=== PATIENT | male | born 1990 | race Caucasian/White ===

== ENCOUNTER 2019-07-15 08:26 | Outpatient (CLI) | payer BC, SELFPAY ==
--- NOTE | 2019-07-28 02:45 | SLEEP_ITS ---
Home Sleep Test DATE OF STUDY: 07/15/2019 REASON FOR THIS STUDY: Excessive hypersomnolence, poor quality sleep. HISTORY: This patient is a 29-year-old male, 5 feet 11 inches tall, weighing 170 pounds with a body mass index of 23.7. He has anxiety, depression, and a long history of excessive daytime sleepiness. His sleep quality is poor and his sleep consistency is irregular. He wakes up feeling exhausted every day. He finds it difficult to maintain a consistent sleep schedule, often sleeping in the day and staying awake at night. He has tried sleep hygiene recommendations medications to help correct his missed aligned sleep cycle, and although he does not snore or at least loudly enough that others complain about it. He does awaken during the night. He never awakens during the night short of breath, but he occasionally awakens at night with heartburn or belching. He frequently has trouble sleeping with a cold. He rarely sweats excessively at night. He does not notices heart pounding irregularly at night. He frequently falls asleep during the day, never involuntarily, or while driving. He does not have loss of muscle tone due to extreme emotion. He frequently has difficulty at school or work due to excessive sleepiness. He does not feel paralyzed on waking or falling asleep. He does not have vivid dreamlike scenes upon awakening or falling asleep. He occasionally is afraid to go to sleep. He rarely has nightmares, rarely remembers his dreams and rarely has racing thoughts. He occasionally feels sad, depressed, or anxious. He does not have muscular tension. He occasionally notices parts of his body jerking and he occasionally kicks at night. He does not have crawly achy feelings in his legs. He does not have leg pain at night or jaw pain. He frequently grinds his teeth at night. He is rarely bothered by pain during the day or at night. He frequently wakes up feeling stiff in the morning with sore achy muscles. He rarely wakes up with pain in the neck and spine. He has fatigue, concentration difficulties, and takes antacids regularly. Normal bedtime is 8 p.m., during the week and 12 p.m. on the weekends. He takes 1-2 hours to fall asleep, waking once at night maybe for minutes or maybe longer. During that time, he will go to the bathroom, read or attempt to go back to sleep. He wakes in the morning at 7 a.m. On the weekends, he will go to bed at 12 midnight and wake also at 7 a.m. He goes to sleep later on Sundays. He does not take naps. A short nap is not refreshing. He is drowsy in the morning for 2 hours or longer. He feels better in the morning than at other times a day. MEDICAL COMORBIDITIES: Anxiety, depression, seasonal allergies. MEDICATIONS: Paroxetine 10 mg daily, bupropion 300 mg daily, montelukast 10 mg daily. HABITS: Never smoked tobacco. Caffeine, 2 Red Bulls daily. Alcohol is not use. No recreational drugs. DESCRIPTION OF THE STUDY: On the [place] Sleepiness Scale, it is 5. This was conducted as an unattended home sleep test using 4 channel monitoring including respiratory effort channel, snoring channel, oxygen saturation channel, and heart rate channel. This study was scored using [facility] guidelines. Duration of the study was 10 hours 46 minutes. This is longer than the patient normally sleeps at home. The apnea-hypopnea index was 6. The oxygen desaturation index was 3. The lowest desaturation was 91%. The baseline saturation was 96%. He had 47 apneas. The majority of these apneas 60% were central apneas, 28 were recorded. 34% of the apneas were scored as obstructive, and this was 16 apneas. He had 6% mixed apneas for a total of 3. He had 16 hypopneas. He had 358 snoring events. He had 32 desaturations, but did not spend any time belo
== END 2019-07-15 08:27 | disposition home or self-care (01) ==
LOC: ANHCSM 08:28
PROVIDERS: PCP Family Medicine; Visit Provider Internal Medicine Critical Care Medicine
DX: G47.10 Hypersomnia, unspecified (principal); Z72.821 Inadequate sleep hygiene; F33.1 Major depressive disorder, recurrent, moderate; J30.2 Other seasonal allergic rhinitis
CPT/HCPCS: 95806

== ENCOUNTER 2020-01-26 02:05 | Outpatient (CLI) | payer BC, SELFPAY ==
[2020-01-26 17:02] LABS: SARS-CoV-2 RNA PCR Negative
== END 2020-01-26 02:06 | disposition home or self-care (01) ==
LOC: ANHCOVIDDT 02:05
PROVIDERS: PCP Family Medicine; Visit Provider Internal Medicine Critical Care Medicine
DX: Z20.828 Contact with and (suspected) exposure to other viral communicable diseases (principal)
CPT/HCPCS: 87635; C9803; U0003

== ENCOUNTER 2020-01-28 08:37 | Outpatient (CLI) | payer BC, SELFPAY ==
--- NOTE | 2020-02-19 12:38 | WPDSLEEPSTUD ---
Sleep Study Date of Study: 01/28/20 Ordering Provider: Kristofer Manzano NP Interpreting Physician: Zenia Su MD Sleep Study Type: CPAP Titration Height: 1.8 m Weight: 77.564 kg Body Mass Index: 23.8 Neck Circumference (inches): 16.5 Gregory: 12 Reason for Sleep Study Prior home sleep test on July 15, 2019 showing mild central sleep apnea syndrome with an AHI of 6 with co-morbidities of anxiety and depression. Sleep History This 29 year old man has anxiety, depression, and a long history of excessive daytime sleepiness. His sleep quality is poor and his sleep consistency is irregular. He wakes up feeling exhausted every day. He finds it difficult to maintain a consistent sleep schedule, often sleeping in the day and staying awake at night. He has tried sleep hygiene recommendations and medications to help correct his misaligned sleep cycle. He does not snore or at least loudly enough that others complain about it. He does awaken during the night. He never awakens during the night short of breath, but he occasionally awakens at night with heartburn or belching. He frequently has trouble sleeping with a cold. He rarely sweats excessively at night. He does not notice his heart pounding irregularly at night. He frequently falls asleep during the day, never involuntarily, or while driving. He does not have loss of muscle tone due to extreme emotion. He frequently has difficulty at school or work due to excessive sleepiness. He does not feel paralyzed on waking or falling asleep. He does not have vivid dreamlike scenes upon awakening or falling asleep. He occasionally is afraid to go to sleep. He rarely has nightmares, rarely remembers his dreams and rarely has racing thoughts. He occasionally feels sad, depressed, or anxious. He does not have muscular tension. He occasionally notices parts of his body jerking and he occasionally kicks at night. He does not have crawly achy feelings in his legs. He does not have leg pain at night or jaw pain. He frequently grinds his teeth at night. He is rarely bothered by pain during the day or at night. He frequently wakes up feeling stiff in the morning with sore achy muscles. He rarely wakes up with pain in the neck and spine. He has fatigue, concentration difficulties, and takes antacids regularly. Normal bedtime is 8 p.m., during the week and 12 p.m. on the weekends. He takes 1-2 hours to fall asleep, waking once at night maybe for minutes or maybe longer. During that time, he will go to the bathroom, read or attempt to go back to sleep. He wakes in the morning at 7 a.m. On the weekends, he will go to bed at 12 midnight and wake also at 7 a.m. He goes to sleep later on Sundays. He does not take naps. A short nap is not refreshing. He is drowsy in the morning for 2 hours or longer. He feels better in the morning than at other times a day. [facility] Past Medical History Medical History (Updated 02/19/20 @ 12:54 by Zenia Su MD) Allergic rhinitis Anxiety Central sleep apnea Cubital tunnel syndrome, bilateral Depression Dysthymic disorder Family History Family History (Updated 01/09/19 @ 10:04 by DOCTOR UNKNOWN) Mother Depression Social History Social History (Updated 02/19/20 @ 12:47 by Zenia Su MD) Social History: Caffeine- 2 Red Bull caffeinated drinks per day. Smoking status: Never smoker Alcohol intake: never Medications paroxetine 10 mg a day Zyrtec 10 mg a day amphetamine salts 5 mg a day Sleep Procedure This attended study was performed using the Intrakr multiple channel system including EOG, EEG, submental EMG, snore channel monitoring, nasal and oral airflow using thermistors and nasal pressure sensors, EKG, chest and abdominal belts for body position data, limb leads, pulse oximetry and video monitoring. The study was read using [facility] guidelines. He was titrated using initially medium Navarro nasal pillows, then small Navarro nasal pillows, f
[2020-02-19 13:30] VITALS: BMI 23.8
== END 2020-01-28 08:38 | disposition home or self-care (01) ==
LOC: ANHCSM 08:38
PROVIDERS: PCP Family Medicine; Visit Provider Nurse Practitioner Family
DX: G47.31 Primary central sleep apnea (principal)
CPT/HCPCS: 95811

== ENCOUNTER → 2021-04-07 11:23 | Outpatient (CLI) | payer BC, SELFPAY ==
--- NOTE | ~2021-04-07 | XR_ITS ---
XR knee RT 3V DATE: 04/07/2021 12:27 INDICATION: Right knee pain TECHNIQUE: AP, lateral, sunrise views COMPARISON: None FINDINGS: There are two ossicles at the inferior aspect of the patella, likely accessory ossicles in the absence of any given history of recent trauma. No fracture or dislocation of joint effusion. Joint spaces are well preserved. No radiopaque intra- articular loose body or chondrocalcinosis. IMPRESSION: Probable accessory ossification centers at inferior pole of patella Reviewed, dictated and finalized at location A. 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
== END ==
PROVIDERS: PCP Family Medicine; Visit Provider Physician Assistant
DX: M25.569 Pain in unspecified knee (principal); R93.7 Abnormal findings on diagnostic imaging of other parts of musculoskeletal system
CPT/HCPCS: 73562

== ENCOUNTER 2022-04-19 14:19 | Outpatient (CLI) | payer BC, SELFPAY ==
[2022-04-19 18:54] LABS: Basophils Absolute Auto 0.1 K/mm3 (0.0-0.1); Basophils Percent Auto 1.2 % (0.2-1.2); Eosinophils Absolute Auto 0.2 K/mm3 (0-0.3); Eosinophils Percent Auto 3.6 % (0-4.4); Hematocrit 46.1 % (42.0-52.0); Hemoglobin 15.8 g/dL (14.0-18.0); Immature Granulocyte Absolute 0.01 K/mm3 (0.00-0.031); Immature Granulocyte Percent A 0.2 % (0-0.5); Lymphocytes Absolute Auto 1.78 K/mm3 (0.9-3.2); Lymphocytes Percent Auto 30.4 % (18.3-44.2); Mean Corpuscular HGB Conc 34.3 g/dl (32-36); Mean Corpuscular Hemoglobin 29.4 pg (26-34); Mean Corpuscular Volume 85.8 fl (80-100); Mean Platelet Volume 11.2 fl (7.4-10.4); Monocytes Absolute Auto 0.4 K/mm3 (0.1-0.6); Monocytes Percent Auto 7.2 % (2.6-8.5); Neutrophils Absolute Auto 3.4 K/mm3 (1.3-6.7); Neutrophils Percent Auto 57.4 % (45.5-73.1); Platelet Count Result 247 k/mm3 (150-375); Red Blood Count 5.37 M/mm3 (4.6-6.20); Red Cell Distribution Width 12.4 % (11.5-14.5); White Blood Count 5.9 K/mm3 (4.5-10.0)
[2022-04-19 19:03] LABS: Alanine Aminotransferase 34 U/L (6-50); Albumin Level 4.8 g/dL (3.5-5.1); Alkaline Phosphatase 118 U/L (38-126); Anion Gap 11 mmol/L (8-16); Aspartate Amino Transferase 51 U/L (17-59); Bilirubin,Total 0.5 mg/dL (0.2-1.3); Blood Urea Nitrogen 8 mg/dL (9-20); Calcium 9.6 mg/dL (8.4-10.2); Carbon Dioxide 30 mmol/L (22-30); Chloride 104 mmol/L (98-107); Cholesterol 157 mg/dL (0-200); Estimated Glomerular Filt Rate > 60; Glucose 103 mg/dL (65-110); HDL Direct 29 mg/dL; Potassium 4.9 mmol/L (3.4-5.0); Sodium 145 mmol/L (137-145); Triglycerides 169 mg/dL (<150)
[2022-04-19 19:29] LABS: LDL Cholesterol Direct 84 mg/dL
[2022-04-19 19:30] LABS: Vitamin D 25 Hydroxy 33.6 ng/mL
[2022-04-19 19:33] LABS: Thyroid Stimulating Hormone 0.499 uIU/mL (0.465-4.680)
[2022-04-23 04:05] LABS: Thyroglobulin 11.8 ng/mL (2.8-40.9); Thyroglobulin Antibodies <1 IU/mL (<=1); Thyroid Peroxidase Antibodies <1 IU/mL (<9)
== END 2022-04-19 14:20 | disposition home or self-care (01) ==
LOC: ANHGOSHLAB 14:21
PROVIDERS: PCP Family Medicine; Visit Provider Family Medicine
DX: Z00.00 Encounter for general adult medical examination without abnormal findings (principal); R53.83 Other fatigue; M79.10 Myalgia, unspecified site; E04.9 Nontoxic goiter, unspecified
CPT/HCPCS: 36415; 80053; 80061; 82306; 82607; 84432; 84443; 85025; 86376; 86800

== ENCOUNTER → 2022-04-25 12:58 | Outpatient (CLI) | payer BC, SELFPAY ==
--- NOTE | ~2022-04-25 | US_ITS ---
US thyroid INDICATION: Nontoxic thyroid goiter TECHNIQUE: Real-time sonographic images of the thyroid gland were obtained. COMPARISON: No prior studies for comparison. FINDINGS: The right thyroid lobe measures 4.8 x 1.5 x 1.4 cm. The left thyroid lobe measures 4.4 x 1 .7 x 1.5 cm. There is normal echotexture and echogenicity throughout the thyroid gland. No discrete n odules identified. Normal vascular flow is present. IMPRESSION: 1. Normal thyroid without discrete nodule or abnormal vascularity. Reviewed, dictated and finalized at location A. 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
== END ==
PROVIDERS: PCP Family Medicine; Visit Provider Family Medicine
DX: E04.9 Nontoxic goiter, unspecified (principal)
CPT/HCPCS: 76536

== ENCOUNTER 2022-07-30 00:10 | Day surgery (SDC) | payer BC, SELFPAY ==
[2022-07-18 14:01] VITALS: BMI 27.1
[2022-07-30 12:16] VITALS: BP 108/59; PULSE 92; RESP 18; TEMP 36.7; O2SAT 99; BMI 26.4
[2022-07-30] MEDS: LACTATED RINGERS 1,000 ML 150 ML IV CONT (12:30)
--- NOTE | 2022-07-30 12:32 | WPDANESEPPF ---
Anes - Initial Pre Proc Eval Procedure: Operation Date: 07/30/22 13:30 Proposed Procedures p Esophagogastroduodenoscopy - Francisco Soto MD Date/Time: 07/30/22 12:32 Surgeon: Francisco Soto MD Pre Op Diagnosis: pharyngoesophageal phase, dysphagia Patient Data Age: 32 Gender: M Height: 1.83 m Weight: 88.5 kg Last Vital Signs Temp 36.7 C 07/30/22 12:16 Pulse 92 07/30/22 12:16 Resp 18 07/30/22 12:16 BP 108/59 L 07/30/22 12:16 Pulse Ox 99 07/30/22 12:16 O2 Del Method Room Air 07/30/22 12:16 Allergies Allergy/AdvReac Type Severity Reaction Status Date / Time grass pollen Allergy Unknown unknown Verified 07/30/22 12:15 milk Allergy Unknown unknown Verified 07/30/22 12:15 NKDA Allergy Mild NONE Uncoded 07/11/22 15:43 Home Medications Medication Instructions Recorded Confirmed Type cetirizine 10 mg capsule (Zyrtec) 10 mg PO DAILY PRN Allergic 09/12/20 07/30/22 History Symptoms paroxetine HCl 20 mg tablet 30 mg PO DAILY 03/13/22 07/30/22 History modafinil 200 mg tablet 200 mg PO QAM 30 days #30 tabs 06/25/22 07/30/22 Rx Patient hx anesthesia problems: none Family hx anesthesia problems: none Results Review: All pre-operative results and documents have been reviewed as part of the pre-operative evaluation. [facility] Past Medical History Medical History Allergic rhinitis Anxiety Central sleep apnea Cubital tunnel syndrome, bilateral Depression Dysthymic disorder Right patella fracture Distal pole non-displaced. Surgical History Surgical History No history of previous surgery Family History Family History Mother Depression Social History Social History Social History: Caffeine- 1Red Bull caffeinated drinks per day. Smoking status: Never smoker Second hand tobacco smoke exposure: Yes Alcohol intake: never Substance use: never Substance use type: does not use Lack of Transportation: No Lack of Food: Never True Current Housing: I Have Housing Concerned About Future Housing: No Difficulty Paying Gas/Electric Bills: No Difficulty Paying for Meds: No Currently Unemployed: Decline to Answer Education: Decline to Answer Difficulty w/ Childcare or Family Care: No Living arrangements: alone Spiritual care concerns: No Anes - Eval Final PreProcedure Day of Procedure 07/30/22 12:32 Patient weight: normal Heart: regular rate and rhythm Lungs: clear to auscultation Airway: Mallampati scale class II Neurological: alert and oriented Last oral intake: >/= 8 hours ASA classification: II Emergent: no Anesthetic plan: proceed Anesthesia type and monitoring: general GIVS and standard monitoring Results Review: All pre-operative results and documents have been reviewed as part of the pre-operative evaluation. Informed Consent: The patient's anesthetic plan and its attendant risks and benefits were discussed with the patient/family/POA. Questions were solicited and answers provided to the satisfaction of the patient/family/POA.
--- NOTE | 2022-07-30 12:58 | PM.HPGS ---
History of Present Illness History of Present Illness Consent: Risks, benefits, and alternatives have been discussed and questions answered. Patient agrees to proceed with procedure. Chief complaint: pharyngoesophageal phase, dysphagia Narrative: Danial Hernandez is a 32 year old male with intermittent sensation of food getting stuck in throat, never had egd Review of Systems Constitutional: Constitutional: Denies headache(s) and Denies weakness Eyes: Eyes: Denies blurry vision ENT: Reports Normal hearing present, Denies headache(s) and Denies neck pain Cardiovascular: Cardiovascular: Denies chest pain and Denies dyspnea Respiratory: Respiratory: Denies dyspnea Gastrointestinal: Gastrointestinal: Reports no additional gastrointestinal complaints Genitourinary: Genitourinary: Denies dysuria Musculoskeletal: Musculoskeletal: Denies neck pain Integumentary/Breasts: Skin/Breast: Denies dry skin Neurologic: Reports Normal hearing present, Denies headache(s) and Denies weakness Psychiatric: Psychiatric: Denies anxiety Endocrine: Endocrine: Denies change in body appearance Hematologic/Lymphatic: Hematologic/Lymphatic: Denies easy bleeding Allergic/Immunologic: Allergic/Immunologic: Denies urticaria PMFSH Past Medical History Medical History Allergic rhinitis Anxiety Central sleep apnea Cubital tunnel syndrome, bilateral Depression Dysthymic disorder Right patella fracture Distal pole non-displaced. Surgical History Surgical History No history of previous surgery Family History Family History Mother Depression Social History Social History Social History: Caffeine- 1Red Bull caffeinated drinks per day. Smoking status: Never smoker Second hand tobacco smoke exposure: Yes Alcohol intake: never Substance use: never Substance use type: does not use Lack of Transportation: No Lack of Food: Never True Current Housing: I Have Housing Concerned About Future Housing: No Difficulty Paying Gas/Electric Bills: No Difficulty Paying for Meds: No Currently Unemployed: Decline to Answer Education: Decline to Answer Difficulty w/ Childcare or Family Care: No Living arrangements: alone Spiritual care concerns: No Meds Home Medications and Allergies Home Medications Medication Instructions Recorded Confirmed Type cetirizine 10 mg capsule (Zyrtec) 10 mg PO DAILY PRN Allergic 09/12/20 07/30/22 History Symptoms paroxetine HCl 20 mg tablet 30 mg PO DAILY 03/13/22 07/30/22 History modafinil 200 mg tablet 200 mg PO QAM 30 days #30 tabs 06/25/22 07/30/22 Rx Allergies Allergy/AdvReac Type Severity Reaction Status Date / Time grass pollen Allergy Unknown unknown Verified 07/30/22 12:15 milk Allergy Unknown unknown Verified 07/30/22 12:15 NKDA Allergy Mild NONE Uncoded 07/11/22 15:43 Vital Signs Vital Signs - 24 hr 07/30/22 12:16 Temperature 98.0 F Pulse Rate 92 Respiratory Rate 18 Blood Pressure 108/59 L Pulse Oximetry 99 Oxygen Delivery Room Air Exam Const: General: comfortable and no acute distress HENMT: Face/Nose/Sinus: Normal nares present Eyes: General: appearance normal, both eyes and all related structures Neck: Neck: no JVD Resp: Auscultation: clear to auscultation bilaterally Cardio: Rate: regular rate Rhythm: regular rhythm GI: Inspection: non-distended GI Palp: Yes Soft to palpation Skin: General skin exam: normal color Neuro: General: gait normal Speech: normal speech Extrem: General: normal to inspection Psych: Mental Status: mental status grossly normal Assessment and Plan Assessment and plan (1) Dysphagia: Qualifiers: Dysphagia type: pharyngoesophageal phase Qualified Code(s): R13.14
[2022-07-30 13:12] VITALS: BP 91/49; PULSE 77; RESP 22; O2SAT 99
[2022-07-30 13:22] VITALS: BP 89/50; PULSE 83; RESP 18; O2SAT 98
[2022-07-30 13:32] VITALS: BP 90/58; PULSE 82; RESP 16; O2SAT 99
== END 2022-07-30 13:40 | disposition home or self-care (01) ==
PROVIDERS: PCP Family Medicine; Visit Provider Internal Medicine Gastroenterology
PROC: 0DJ08ZZ Inspection of Upper Intestinal Tract, Via Natural or Artificial Opening Endoscopic (ICD-10-PCS; CPT 43235; principal; 2022-07-30 13:30)
DX: R13.14 Dysphagia, pharyngoesophageal phase (principal); K21.00 Gastro-esophageal reflux disease with esophagitis, without bleeding; G56.20 Lesion of ulnar nerve, unspecified upper limb; G47.31 Primary central sleep apnea; F32.A Depression, unspecified; F41.9 Anxiety disorder, unspecified; F34.1 Dysthymic disorder
CPT/HCPCS: 43239; 88305; J2704; J7120

== ENCOUNTER 2022-10-24 00:13 | Day surgery (SDC) | payer BC, SELFPAY ==
[2022-10-17 14:15] VITALS: BMI 25.7
[2022-10-24 08:14] VITALS: BP 102/66; PULSE 97; RESP 17; TEMP 36.6; O2SAT 98
--- NOTE | 2022-10-24 08:29 | WPDANESEPPF ---
Anes - Initial Pre Proc Eval Procedure: Operation Date: 10/24/22 09:45 Proposed Procedures p Colonoscopy - Francisco Soto MD Date/Time: 10/24/22 08:29 Surgeon: Francisco Soto MD Pre Op Diagnosis: melena Patient Data Age: 32 Gender: M Height: 1.83 m Weight: 87.3 kg Last Vital Signs Temp 36.6 C 10/24/22 08:14 Pulse 97 10/24/22 08:14 Resp 17 10/24/22 08:14 BP 102/66 10/24/22 08:14 Pulse Ox 98 10/24/22 08:14 O2 Del Method Room Air 10/24/22 08:14 Allergies Allergy/AdvReac Type Severity Reaction Status Date / Time grass pollen Allergy Unknown unknown Verified 10/24/22 08:13 milk Allergy Unknown unknown Verified 10/24/22 08:13 gluten Allergy Other Verified 10/24/22 08:13 Home Medications Medication Instructions Recorded Confirmed Type cetirizine 10 mg capsule (Zyrtec) 10 mg PO DAILY Allergic Symptoms 09/12/20 10/17/22 History paroxetine HCl 20 mg tablet 40 mg PO DAILY 03/13/22 10/17/22 History aripiprazole 5 mg tablet (Abilify) 0.5 mg PO DAILY 09/07/22 10/17/22 History modafinil 200 mg tablet 200 mg PO QAM 30 days #30 tabs 10/02/22 10/17/22 Rx omeprazole 40 mg capsule,delayed 40 mg PO DAILY 10/17/22 10/17/22 History release Patient hx anesthesia problems: none Family hx anesthesia problems: none Results Review: All pre-operative results and documents have been reviewed as part of the pre-operative evaluation. [facility] Past Medical History Medical History Allergic rhinitis Anxiety Central sleep apnea Cubital tunnel syndrome, bilateral Depression Dysthymic disorder Right patella fracture Distal pole non-displaced. Surgical History Surgical History No history of previous surgery Family History Family History Mother Depression Social History Social History (Updated 09/07/22 @ 10:35 by Yessenia Ardon MA) Social History: Caffeine- 1Red Bull caffeinated drinks per day. Smoking status: Never smoker Second hand tobacco smoke exposure: Yes Alcohol intake: never Substance use: never Substance use type: does not use Lack of Transportation: No Lack of Food: Never True Current Housing: I Have Housing Concerned About Future Housing: No Difficulty Paying Gas/Electric Bills: No Difficulty Paying for Meds: No Currently Unemployed: Decline to Answer Education: Bachelor's Degree Difficulty w/ Childcare or Family Care: No Living arrangements: with family Spiritual care concerns: No Anes - Eval Final PreProcedure Day of Procedure 10/24/22 08:29 Patient weight: normal Heart: regular rate and rhythm Lungs: clear to auscultation Airway: Mallampati scale class II Neurological: alert and oriented Last oral intake: >/= 8 hours ASA classification: II Emergent: no Anesthetic plan: proceed Anesthesia type and monitoring: general GIVS and standard monitoring Results Review: All pre-operative results and documents have been reviewed as part of the pre-operative evaluation. Informed Consent: The patient's anesthetic plan and its attendant risks and benefits were discussed with the patient/family/POA. Questions were solicited and answers provided to the satisfaction of the patient/family/POA.
[2022-10-24] MEDS: LACTATED RINGERS 1,000 ML 150 ML IV CONT (08:30)
--- NOTE | 2022-10-24 09:18 | PM.HPGS ---
History of Present Illness History of Present Illness Consent: Risks, benefits, and alternatives have been discussed and questions answered. Patient agrees to proceed with procedure. Chief complaint: melena Narrative: Danial Hernandez is a 32 year old male here with intermittent rectal bleeding, never had colonoscopy Review of Systems Constitutional: Constitutional: Denies headache(s) and Denies weakness Eyes: Eyes: Denies blurry vision ENT: Reports Normal hearing present, Denies headache(s) and Denies neck pain Cardiovascular: Cardiovascular: Denies chest pain and Denies dyspnea Respiratory: Respiratory: Denies dyspnea Gastrointestinal: Gastrointestinal: Reports no additional gastrointestinal complaints Genitourinary: Genitourinary: Denies dysuria Musculoskeletal: Musculoskeletal: Denies neck pain Integumentary/Breasts: Skin/Breast: Denies dry skin Neurologic: Reports Normal hearing present, Denies headache(s) and Denies weakness Psychiatric: Psychiatric: Denies anxiety Endocrine: Endocrine: Denies change in body appearance Hematologic/Lymphatic: Hematologic/Lymphatic: Denies easy bleeding Allergic/Immunologic: Allergic/Immunologic: Denies urticaria PMFSH Past Medical History Medical History Allergic rhinitis Anxiety Central sleep apnea Cubital tunnel syndrome, bilateral Depression Dysthymic disorder Right patella fracture Distal pole non-displaced. Surgical History Surgical History No history of previous surgery Family History Family History Mother Depression Social History Social History (Updated 09/07/22 @ 10:35 by Yessenia Ardon MA) Social History: Caffeine- 1Red Bull caffeinated drinks per day. Smoking status: Never smoker Second hand tobacco smoke exposure: Yes Alcohol intake: never Substance use: never Substance use type: does not use Lack of Transportation: No Lack of Food: Never True Current Housing: I Have Housing Concerned About Future Housing: No Difficulty Paying Gas/Electric Bills: No Difficulty Paying for Meds: No Currently Unemployed: Decline to Answer Education: Bachelor's Degree Difficulty w/ Childcare or Family Care: No Living arrangements: with family Spiritual care concerns: No Meds Home Medications and Allergies Home Medications Medication Instructions Recorded Confirmed Type cetirizine 10 mg capsule (Zyrtec) 10 mg PO DAILY Allergic Symptoms 04/26/21 05/31/23 History paroxetine HCl 20 mg tablet 40 mg PO DAILY 03/13/22 10/17/22 History aripiprazole 5 mg tablet (Abilify) 0.5 mg PO DAILY 09/07/22 10/17/22 History modafinil 200 mg tablet 200 mg PO QAM 30 days #30 tabs 10/02/22 10/17/22 Rx omeprazole 40 mg capsule,delayed 40 mg PO DAILY 10/17/22 10/17/22 History release Allergies Allergy/AdvReac Type Severity Reaction Status Date / Time grass pollen Allergy Unknown unknown Verified 10/24/22 08:13 milk Allergy Unknown unknown Verified 10/24/22 08:13 gluten Allergy Other Verified 10/24/22 08:13 Vital Signs Vital Signs - 24 hr 10/24/22 08:14 Temperature 97.9 F Pulse Rate 97 Respiratory Rate 17 Blood Pressure 102/66 Pulse Oximetry 98 Oxygen Delivery Room Air Exam Const: General: comfortable and no acute distress HENMT: Face/Nose/Sinus: Normal nares present Eyes: General: appearance normal, both eyes and all related structures Neck: Neck: no JVD Resp: Auscultation: clear to auscultation bilaterally Cardio: Rate: regular rate Rhythm: regular rhythm GI: Inspection: non-distended GI Palp: Yes Soft to palpation Skin: General skin exam: normal color Neuro: General: gait normal Speech: normal speech Extrem: General: normal to inspection Psych: Mental Status: mental status grossly normal Assessment and Plan Assessment and
[2022-10-24 09:37] VITALS: BP 83/34; PULSE 66; RESP 18; O2SAT 97
[2022-10-24 09:47] VITALS: BP 87/47; PULSE 72; RESP 18; O2SAT 99
[2022-10-24 09:57] VITALS: BP 86/39; PULSE 68; RESP 18; O2SAT 100
[2022-10-24 10:07] VITALS: BP 96/52; PULSE 74; RESP 18; O2SAT 100
== END 2022-10-24 10:12 | disposition home or self-care (01) ==
PROVIDERS: PCP Family Medicine; Visit Provider Internal Medicine Gastroenterology
PROC: 0DJD8ZZ Inspection of Lower Intestinal Tract, Via Natural or Artificial Opening Endoscopic (ICD-10-PCS; CPT 45378; principal; 2022-10-24 09:45)
DX: K64.8 Other hemorrhoids (principal); F41.9 Anxiety disorder, unspecified; F32.A Depression, unspecified; G47.31 Primary central sleep apnea; F34.1 Dysthymic disorder
CPT/HCPCS: 45378; J2704; J7120

== ENCOUNTER 2025-02-19 09:08 | Outpatient (CLI) | payer BC, SELFPAY ==
--- NOTE | ~2025-02-19 | US_ITS ---
ULTRASOUND ABDOMEN LIMITED (RIGHT UPPER QUADRANT) Clinical History: R79.89 - Other specified abnormal findings of blood chemi... Comparison: None Technique: Right upper quadrant sonography Findings: Liver: Normal size. Echogenic. No intrahepatic biliary ductal dilatation. Normal hepatopedal flow main portal vein. Common Duct: Normal caliber. 4 mm. Gallbladder: No stones. No wall thickening. No pericholecystic fluid. Pancreas: Unremarkable. Right kidney: Unremarkable. Retrohepatic IVC: Unremarkable. IMPRESSION: 1. No acute findings. 2. Hepatic steatosis and/or diffuse hepatocellular disease. Reviewed, dictated and finalized at location R.
== END 2025-02-19 09:09 | disposition home or self-care (01) ==
LOC: MICIMG 09:08
PROVIDERS: PCP Family Medicine; Visit Provider Student in an Organized Health Care Education/Training Program
DX: R79.89 Other specified abnormal findings of blood chemistry (principal)
CPT/HCPCS: 76705